=== PATIENT | female | born 1970 | race Caucasian/White ===

== ENCOUNTER → 2019-01-10 | Outpatient (CLI) | payer BC ==
--- NOTE | 2019-01-10 11:30 | PCVCIMAG ---
APPROVED REPORT Study performed: 01/10/2019 09:19:24 EXAM: Comprehensive 2D, Doppler, and color-flow Echocardiogram Patient Location: Echo lab Status: routine BSA: 1.89 HR: 60 bpmBP: 152/100 mmHg Rhythm: NSR Other Information Study Quality: Adequate Risk Factors: Cardiac Risk Factors: HTN, Hyperlipidemia Indications Dyspnea 2D Dimensions IVSd: 8.74 (7-11mm) LVDd: 41.97 mm PWd: 7.80 (7-11mm)Ascending Ao: 36.02 (22-36mm) LVDs: 31.30 (25-40mm) Left Atrium: 32.69 (27-40mm) Aortic Root: 33.45 mm LV Single Plane 4CH: 66.71 % LV Single Plane 2CH: 68.75 % Biplane EF: 67.7 % Volumes Left Atrial Volume (Systole) Single Plane 4CH: 48.28 mLSingle Plane 2CH: 61.21 mL LA ESV Index: 37.00 mL/m2 Aortic Valve AoV Peak New.: 1.54 m/s AO Peak Gr.: 9.45 mmHgLVOT Max P.06 mmHg LVOT Max V: 1.12 m/s Mitral Valve E/A Ratio: 1.3 MV Decel. Time: 237.34 ms MV E Max New.: 0.51 m/s MV A New.: 0.39 m/s IVRT: 89.97 ms Pulmonary Valve PV Peak New.: 0.97 m/sPV Peak Gr.: 3.78 mmHg Pulmonary Vein P Vein S: 0.35 m/sP Vein A: 0.36 m/s P Vein D: 0.53 m/sP Vein A Dur.: 134.9 msec P Vein S/D Ratio: 0.66 Tricuspid Valve TR Peak New.: 2.73 m/s TR Peak Gr.: 29.73 mmHg TV Vmax: 0.53 m/s Left Ventricle The left ventricle is normal size. There is normal LV segmental wall motion. There is normal left ventricular wall thickness. Left ventricular systolic function is normal. The left ventricular ejection fraction is within the normal range. LVEF is 60-65%. Grade I - abnormal relaxation pattern. Right Ventricle The right ventricle is normal size. The right ventricular systolic function is normal. Atria The left atrium size is normal. The right atrium size is normal. Aortic Valve The aortic valve is normal in structure. Trace aortic regurgitation. There is no aortic valvular stenosis. Mitral Valve The mitral valve is normal in structure. Mild mitral regurgitation. No evidence of mitral valve stenosis. Tricuspid Valve The tricuspid valve is normal in structure. Mild tricuspid regurgitation with PAP of 37 mmHg. Pulmonic Valve The pulmonary valve is normal in structure. There is no pulmonic valvular regurgitation. Great Vessels The aortic root is normal in size. IVC is normal in size and collapses >50% with inspiration. Pericardium There is no pericardial effusion. There is no pleural effusion. <Conclusion> The left ventricle is normal size. LVEF is 60-65%. The aortic valve is normal in structure. Trace aortic regurgitation. The mitral valve is normal in structure. Mild mitral regurgitation. The tricuspid valve is normal in structure. Mild tricuspid regurgitation with PAP of 37 mmHg. The pulmonary valve is normal in structure. There is no pericardial effusion.
--- NOTE | 2019-01-10 16:43 | PCVCIMAG ---
EXAM: BILATERAL RENAL ULTRASOUND AND BILATERAL RENAL DUPLEX INDICATION: Hypertension FINDINGS: Right kidney: Length measures 10.2 cm. No hydronephrosis or extensive renal scarring. Right renal duplex: Adequate technical quality. No sonographic evidence of renal artery stenosis. The aortic to renal artery ratio is 2.9. The renal vein is patent. Left kidney: Length measures 9.4 cm. No hydronephrosis or extensive renal scarring. Left renal duplex: Adequate technical quality. No sonographic evidence of renal artery stenosis. The aortic to renal artery ratio is 3.0. The renal vein is patent. Bladder: No obvious abnormalities. IMPRESSION: No significant renal artery stenosis. No hydronephrosis bilaterally. LOC:[place] [id number]
== END | disposition home or self-care (01) ==
LOC: PCVCIMAG 08:37
PROVIDERS: ATTEND Internal Medicine
DX: I08.0 Rheumatic disorders of both mitral and aortic valves (principal); R06.09 Other forms of dyspnea; I10 Essential (primary) hypertension; E78.5 Hyperlipidemia, unspecified
CPT/HCPCS: 76770; 93306; 93975